=== PATIENT | male | born 2000 | race Caucasian/White ===

== ENCOUNTER 2021-06-27 00:43 | Emergency (ER) | payer MEDICAID ==
[2021-06-27] MEDS ORDERED: ALBUTEROL NEB 2.5 MG/3 ML INH STA (01:01)
--- NOTE | 2021-06-27 01:04 | ED Physician Documentation ---
History of Present Illness - Stated complaint Stated Complaint: SOA - Chief complaint Chief Complaint: Resp - History obtained from History obtained from: Patient - Additonal information Additional information: 20-year-old male with history presents requesting an inhaler to go home with. Patient states that he is not currently short of breath but that he was hoping for an inhaler from hospital to tide him over until he can fill his prescription July 10. Prior to that time he states he would have to pay [id number]. patient denies leg swelling, hemoptysis, productive cough, fever, nausea or chest pain. 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 Review of Systems Ten Systems: 10 systems reviewed and negative Constitutional: denies: Fever, Chills Respiratory: reports: Dyspnea. denies: Cough PD PAST MEDICAL HISTORY - Past Medical History Past Medical History: Yes Respiratory: Asthma Neuro: Seizure disorder - Past Surgical History Past Surgical History: No - Present Medications Home Medications: Ambulatory Orders Medication Instructions Recorded Confirmed Albuterol Sulf [Ventolin Hfa 2 puffs INH PRN PRN 06/27/21 06/27/21 Inhaler] Montelukast [Singulair] 10 mg PO DAILY 06/27/21 06/27/21 - Allergies Allergies/Adverse Reactions: Allergies Allergy/AdvReac Type Severity Reaction Status Date / Time No Known Drug Allergies Allergy Verified 06/27/21 00:50 - Social History Does the pt smoke?: No Smoking Status: Never smoker Does the pt drink ETOH?: Yes Does the pt have substance abuse?: No - Immunizations Immunizations are current?: Yes PD ED PE NORMAL - Vitals Vital signs reviewed: Yes - General General: Alert and oriented X 3, No acute distress, Well developed/nourished - HEENT HEENT: Atraumatic, PERRL, EOMI, Moist mucous membranes, Pharynx benign - Cardiac Cardiac: RRR, No murmur - Respiratory Respiratory: No respiratory distress, Other (scant expiratory wheezing bilaterally) - Derm Derm: Normal color - Neuro Neuro: Alert and oriented X 3 - Psych Psych: Normal mood, Normal affect Results - Vitals Vitals: Vital Signs - 24 hr 06/27/21 06/27/21 06/27/21 00:51 00:56 01:14 Temperature 36.6 C 36.6 C Heart Rate 64 64 64 Respiratory 21 21 20 Rate Blood Pressure 150/93 H 150/93 H O2 Saturation 97 97 Oxygen O2 Source Room air PD MEDICAL DECISION MAKING - ED course ED course: 20-year-old man presents requesting an inhaler to take home with them. Advised him that we do not have any in the hospital that we can give out and offered him a treatment here, which he accepted. Return precautions given. Patient will follow up outpatient with his primary doctor for referral to pulmonology. Departure - Departure Disposition: 01 Home, Self Care Clinical Impression: Asthma Condition: Good Instructions: Asthma Dc Comments: You were seen in the emergency department for evaluation of asthma. You can get an inhaler for $18.79 at [employer], [email or web address], or most major pharmacies at a discount if you use a coupon from [employer]. Please return to the emergency department if you have any new or worsening symptoms or other concerns. Follow-up with your primary doctor.
[2021-06-27 01:44] VITALS: BP 138/78
== END 2021-06-27 01:45 | disposition home or self-care (01) ==
LOC: ED 00:43
DX: J45.909 Unspecified asthma, uncomplicated (principal)
CPT/HCPCS: 94640; 99283

== ENCOUNTER 2021-07-24 21:17 | Outpatient (CLI) | payer MEDICAID | END 2021-07-24 21:18 | disposition critical access hospital (66) | LOC: EMS 21:17 | DX: R06.02 Shortness of breath (principal); R07.1 Chest pain on breathing; R06.2 Wheezing; R09.81 Nasal congestion; R05 Cough | CPT/HCPCS: A0425; A0427; A0999 ==

== ENCOUNTER 2021-07-24 21:37 | Emergency (ER) | payer MEDICAID ==
[2021-07-24 22:15] LABS: BASOPHILS # (AUTO) 0.1 10^3/uL (0.0-0.1); BASOPHILS % (AUTO) 0.6 %; EOSINOPHILS # (AUTO) 1.2 10^3/uL (0.0-0.7); EOSINOPHILS % (AUTO) 11.1 %; HCT - HEMATOCRIT 46.8 % (42.0-52.0); HGB - HEMOGLOBIN 16.2 g/dL (14.0-18.0); LYMPHOCYTES # (AUTO) 2.7 10^3/uL (1.5-3.5); LYMPHOCYTES % (AUTO) 25.9 %; MEAN CORPUSCULAR HEMOGLOBIN 29.7 pg (27.0-31.0); MEAN CORPUSCULAR HGB CONC 34.6 g/dL (32.0-36.0); MEAN CORPUSCULAR VOLUME 85.7 fL (80.0-94.0); MEAN PLATELET VOLUME 9.5 fL (7.4-11.4); MONOCYTES # (AUTO) 0.7 10^3/uL (0.0-1.0); MONOCYTES % (AUTO) 6.4 %; NEUTROPHILS # (AUTO) 5.8 10^3/uL (1.5-6.6); NEUTROPHILS % (AUTO) 55.7 %; PLT - PLATELET COUNT 212 10^3/uL (130-450); RED BLOOD COUNT 5.46 10^6/uL (4.70-6.10); RED CELL DISTRIBUTION WIDTH 12.4 % (12.0-15.0); WHITE BLOOD COUNT 10.5 x10^3/uL (4.8-10.8)
--- NOTE | 2021-07-24 22:20 | ED Physician Documentation ---
PD HPI URI - Stated complaint Stated Complaint: ASTHMA ATTACK - Chief complaint Chief Complaint: Resp - History obtained from History obtained from: Patient - History of Present Illness Timing - onset: How many days ago (44) Timing duration: Days Timing details: Gradual onset, Still present, Still present in ED Associated symptoms: Nasal congestion, Rhinorrhea, Dry cough, Dyspnea Contributing factors: Sick contact Improves by: Rest, Medication Worsened by: Activity Similar symptoms before: Diagnosis (asthma has run out of albuterol) Recently seen: Not recently seen Review of Systems Constitutional: denies: Fever Eyes: denies: Decreased vision Ears: denies: Ear pain Nose: reports: Congestion Throat: denies: Sore throat Cardiac: denies: Chest pain / pressure, Palpitations Respiratory: reports: Dyspnea, Cough, Wheezing GI: denies: Abdominal Pain, Nausea, Vomiting : denies: Dysuria, Frequency PD PAST MEDICAL HISTORY - Past Medical History Past Medical History: Yes Respiratory: Asthma Neuro: Seizure disorder - Past Surgical History Past Surgical History: No - Present Medications Home Medications: Ambulatory Orders Medication Instructions Recorded Confirmed Albuterol Sulf [Ventolin Hfa 2 puffs INH PRN PRN 06/27/21 07/24/21 Inhaler] Montelukast [Singulair] 10 mg PO DAILY 06/27/21 06/27/21 Albuterol Sulf [Ventolin Hfa 1 - 2 puffs INH Q4HR PRN #1 inhaler 07/24/21 Inhaler] Azithromycin [Zithromax] 250 mg PO DAILY #6 tablet 07/24/21 predniSONE [Deltasone] 10 mg PO ONCE #26 tablet 07/24/21 - Allergies Allergies/Adverse Reactions: Allergies Allergy/AdvReac Type Severity Reaction Status Date / Time No Known Drug Allergies Allergy Verified 06/27/21 00:50 - Social History Does the pt smoke?: No Smoking Status: Never smoker Does the pt drink ETOH?: Yes Does the pt have substance abuse?: No - Immunizations Immunizations are current?: Yes PD ED PE NORMAL - Vitals Vital signs reviewed: Yes (hpyertensive ) - General General: Alert and oriented X 3, No acute distress, Well developed/nourished - HEENT HEENT: Atraumatic, PERRL, EOMI, Pharynx benign, Other (left TM is inflamed with distortion of the landmarks. 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, No motor deficit, No sensory deficit, Normal speech Eye Opening: Spontaneous Motor: Obeys Commands Verbal: Oriented GCS Score: 15 - Psych Psych: Normal mood, Normal affect Results - Vitals Vitals: Vital Signs - 24 hr 07/24/21 07/24/21 07/24/21 21:45 22:23 23:25 Temperature 36.9 C 36.9 C 36.8 C Heart Rate 90 90 89 Respiratory 20 20 20 Rate Blood Pressure 142/90 H 142/90 H 135/71 H O2 Saturation 97 97 97 07/24/21 07/24/21 23:26 23:28 Temperature 36.8 C Heart Rate 89 68 Respiratory 20 16 Rate Blood Pressure 135/71 H O2 Saturation 97 Oxygen O2 Source Room air - Labs Labs: Laboratory Tests 07/24/21 07/24/21 07/24/21 22:08 22:08 22:08 WBC 10.5 RBC 5.46 Hgb 16.2 Hct 46.8 MCV 85.7 MCH 29.7 MCHC 34.6 RDW 12.4 Plt Count 212 MPV 9.5 Neut # (Auto) 5.8 Lymph # (Auto) 2.7 Whiteside # (Auto) 0.7 Eos # (Auto) 1.2 H Baso # (Auto) 0.1 Absolute Nucleated RBC 0.00 Nucleated RBC % 0.0 Sodium 142 Potassium 3.6 Chloride 109 Carbon Dioxide 23 Anion Gap 10.0 BUN 9 Creatinine 0.9 Estimated GFR (MDRD) 106 Glucose 103 H Calcium 9.7 Total Bilirubin 0.5 AST 24 ALT 38 Alkaline Phosphatase 70 Total Protein 7.4 Albumin 4.5 Globulin 2.9 Albumin/Globulin Ratio 1.6 Lipase 30 Nasal Adenovirus (PCR) NOT DETECTED Nasal B. parapertussis DNA (PCR) NOT DETECTED Nasal Coronavir 229E PCR NOT DETECTED Nasal Coronavir HKU1 PCR NOT DETECTED Nasal Coronavir NL63 PCR NOT DETECTED Nasal Coronavir OC43 PCR NOT DETECTED Nasal Enterovir/Rhinovir PCR NOT DETECTED Nasal Influenza B PCR NOT DETECTED Nasal Influenza A PCR NOT DETECTED Nasal Parainfluen 1 PCR NOT DETECTED Nasal Parainfluen 2 PCR NOT DETECTED Nasal Parainfluen 3 PCR NOT DETECTED Nasal Parainfluen 4 PCR NOT DETECTED Nasal RSV (PCR) NOT DETECTED Nasal B.pertussis DNA PCR NOT DETECTED Nasal C.pneumoniae (PCR) NOT DETECTED Soto Human Metapneumo PCR NOT DETECTED Nasal M.pneumoniae (PCR) NOT DETECTED Nasal SARS-CoV-2 (PCR) NOT DETECTED - Rads (name of study) chest Radiology: Prelim report reviewed (Impression: 1. Normal heart and lungs.), EMP read indepedently, See rad report PD MEDICAL DECISION MAKING - ED course Complexity details: reviewed old records, reviewed results, re-evaluated patient, considered differential, d/w patient ED course: 20-year-old male with a history of asthma has had an exacerbation of his asthma he does not have an inhaler at home. He has been sick for about 4 days with increased congestion. He has otitis on the left and his chest x-ray is normal- appearing. He has tight wheezes and he is administered a DuoNeb treatment after his PCR is negative. Is treated for otitis media and given steroid. We will provide an inhaler. Departure - Departure Disposition: 01 Home, Self Care Clinical Impression: Asthma exacerbation Qualifiers: Asthma severity: mild Asthma persistence: intermittent Qualified Code(s): J45.21 - Mild intermittent asthma with (acute) exacerbation Otitis media Qualifiers: Otitis media type: suppurative Chronicity: acute Laterality: left Recurrence: not specified as recurrent Spontaneous tympanic membrane rupture: without spontaneous rupture Qualified Code(s): H66.002 - Acute suppurative otitis media without spontaneous rupture of ear drum, left ear Condition: Stable Instructions: ED Reactive Airway Disease, ED Otitis Media Acute Adult Follow-Up: [facility] [Provider Group] Prescriptions: Albuterol Sulf [Ventolin Hfa Inhaler] 1 - 2 puffs INH Q4HR PRN #1 inhaler PRN Reason: Shortness Of Air/Wheezing predniSONE [Deltasone] 10 mg PO ONCE #26 tablet Azithromycin [Zithromax] 250 mg PO DAILY #6 tablet Discharge Date/Time: 07/24/21 23:40
[2021-07-24] MEDS ORDERED: DEXAMETHASONE 10 MG/ML VIAL IVP STA (22:24)
[2021-07-24] MEDS ORDERED: cefTRIAXone 1 GM in SODIUM CHLORIDE 0.9% MINIBAG 100 ML IV STA (22:25)
[2021-07-24] MEDS ORDERED: cefTRIAXone 1 GM VIAL ONE (22:33)
[2021-07-24 22:36] LABS: ALBUMIN 4.5 g/dL (3.2-5.5); ALBUMIN/GLOBULIN RATIO 1.6 (1.0-2.2); BILIRUBIN,TOTAL 0.5 mg/dL (0.2-1.0); CALCIUM 9.7 mg/dL (8.5-10.3); CREATININE 0.9 mg/dL (0.6-1.2); POTASSIUM 3.6 mmol/L (3.5-5.0); TOTAL PROTEIN 7.4 g/dL (6.7-8.2)
[2021-07-24 23:05] LABS: B. PARAPERTUSSIS- RESP PCR PAN NOT DETECTED; B. PERTUSSIS- RESP PCR PANEL NOT DETECTED; C. PNEUMONIAE- RESP PCR PANEL NOT DETECTED; CORONAVIRUS 229E-RESP PCR NOT DETECTED; CORONAVIRUS HKU1-RESP PCR NOT DETECTED; CORONAVIRUS NL63-RESP PCR NOT DETECTED; CORONAVIRUS OC43-RESP PCR NOT DETECTED; HUMAN METAPNEUMOVIRUS NOT DETECTED; INFLUENZA A- RESP PCR PANEL NOT DETECTED; INFLUENZA B - RESP PCR PANEL NOT DETECTED; M. PNEUMONIAE- RESP PCR PANEL NOT DETECTED; PARAINFLUENZA VIRUS 1 NOT DETECTED; PARAINFLUENZA VIRUS 2 NOT DETECTED; PARAINFLUENZA VIRUS 3 NOT DETECTED; PARAINFLUENZA VIRUS 4 NOT DETECTED; RHINOVIRUS/ENTEROVIRUS NOT DETECTED; RSV- RESP PCR PANEL NOT DETECTED; SARS-CoV-2 -RESP PCR PANEL NOT DETECTED
[2021-07-24] MEDS ORDERED: IPRATROPIUM/ALBUTEROL 3 ML NEB INH STA (23:12)
[2021-07-24 23:26] VITALS: BP 135/71
--- NOTE | 2021-07-25 08:38 | XRAY Report ---
PROCEDURE: Chest 1 View X-Ray INDICATIONS: Chest pain TECHNIQUE: One view of the chest was acquired. COMPARISON: None. FINDINGS: Surgical changes and devices: None. Lungs and pleura: No pleural effusions or pneumothorax. Lungs are clear. Mediastinum: Mediastinal contours appear normal. Heart size is normal. Bones and chest wall: No suspicious bony lesions. Overlying soft tissues appear unremarkable. IMPRESSION: No acute cardiopulmonary process demonstrated radiographically. Reviewed by: Jorge Manley MD on 07/25/2021 8:37 AM PDT Approved by: Jorge Manley MD on 07/25/2021 8:37 AM PDT Station ID: [id number]
== END 2021-07-24 23:40 | disposition home or self-care (01) ==
LOC: EDUNIT# → ED 21:37
DX: J45.21 Mild intermittent asthma with (acute) exacerbation (principal); H66.002 Acute suppurative otitis media without spontaneous rupture of ear drum, left ear; Z20.822 Contact with and (suspected) exposure to COVID-19
CPT/HCPCS: 0202U; 36415; 71045; 80053; 83690; 85025; 94640; 96365; 96375; 99284

== ENCOUNTER 2021-07-27 21:49 | Emergency (ER) | payer MEDICAID ==
[2021-07-27] MEDS ORDERED: ALBUTEROL NEB 2.5 MG/3 ML INH STA ×2 (22:30→23:04)
--- NOTE | 2021-07-27 22:54 | ED Physician Documentation ---
History of Present Illness - Stated complaint Stated Complaint: SOA - Chief complaint Chief Complaint: Resp - History obtained from History obtained from: Patient - Additonal information Additional information: 20-year-old man with history of seizure disorder, asthma, former smoker, presents with cough and shortness of breath progressively worsening over the past week since moving into a new home. Patient was seen here recently in the emergency department and prescribed steroids and comes in tonight because he ran out of his nebulizer treatments. He has used his pump more than 10 times today and did a nebulizer treatment in the morning and then another one about 2 hours prior to arrival. Patient states that he had significant relief from nebulizer but came here because he still is having some chest tightness. Denies hemoptysis, leg swelling, fever or shortness of breath at present. 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), Cough GI: denies: Nausea, Vomiting PD PAST MEDICAL HISTORY - Past Medical History Respiratory: Asthma Neuro: Seizure disorder - Past Surgical History Past Surgical History: No - Present Medications Home Medications: Ambulatory Orders Medication Instructions Recorded Confirmed Albuterol Sulf [Ventolin Hfa 2 puffs INH PRN PRN 06/27/21 07/24/21 Inhaler] Montelukast [Singulair] 10 mg PO DAILY 06/27/21 06/27/21 Albuterol Sulf [Ventolin Hfa 1 - 2 puffs INH Q4HR PRN #1 inhaler 07/24/21 Inhaler] Azithromycin [Zithromax] 250 mg PO DAILY #6 tablet 07/24/21 predniSONE [Deltasone] 10 mg PO ONCE #26 tablet 07/24/21 Albuterol 2.5 mg INH Q4H PRN #30 ml 07/27/21 - Allergies Allergies/Adverse Reactions: Allergies Allergy/AdvReac Type Severity Reaction Status Date / Time No Known Drug Allergies Allergy Verified 07/27/21 21:57 - Social History Does the pt smoke?: No Smoking Status: Never smoker Does the pt drink ETOH?: Yes Does the pt have substance abuse?: No - Immunizations Immunizations are current?: Yes - POLST Patient has POLST: No PD ED PE NORMAL - Vitals Vital signs reviewed: Yes - General General: Alert and oriented X 3, No acute distress, Well developed/nourished - HEENT HEENT: Atraumatic, PERRL, EOMI, Moist mucous membranes, Pharynx benign - Neck Neck: Supple, no meningeal sign - Cardiac Cardiac: RRR - Respiratory Respiratory: No respiratory distress, Other (diffuse end expiratory wheezing. no increased WOB) - Abdomen Abdomen: Non tender, Non distended - Derm Derm: Normal color, Warm and dry - Extremities Extremities: No deformity, No edema - Neuro Neuro: Alert and oriented X 3 - Psych Psych: Normal mood, Normal affect Results - Vitals Vitals: Vital Signs - 24 hr 07/27/21 07/27/21 07/27/21 21:50 21:53 22:50 Temperature 36.4 C L Heart Rate 100 93 88 Respiratory 16 16 18 Rate Blood Pressure 151/89 H 150/85 H O2 Saturation 96 93 Oxygen O2 Source Room air PD MEDICAL DECISION MAKING - ED course ED course: 20-year-old man presents with asthma exacerbation, currently getting steroid treatments but requesting a refill on his nebulizer. Patient symptoms are well controlled upon arrival to the emergency department but he did request 1 additional nebulizer treatment here until he can fill his prescription tomorrow morning. Patient with improved air entry status post nebulizer and diminished in wheezing. Educated to continue his steroid treatment and follow-up with his primary doctor for referral to pulmonology. Return precautions given. Departure - Departure Disposition: 01 Home, Self Care Clinical Impression: Asthma exacerbation Condition: Good Instructions: Asthma Dc Prescriptions: Albuterol 2.5 mg INH Q4H PRN #30 ml PRN Reason: Wheezing Comments: You are seen in the emergency department for asthma exacerbation. Please follow-up with your primary doctor this week and return to the emergency department if you have any new or worsening symptoms or other concerns. Fill your prescription and complete the course of your steroids that you were pre scribed earlier.
[2021-07-27 23:05] VITALS: BP 160/85
== END 2021-07-27 23:08 | disposition left against medical advice (07) ==
LOC: ED 21:49
DX: J45.901 Unspecified asthma with (acute) exacerbation (principal)
CPT/HCPCS: 94640; 94664; 99283; 99284

== ENCOUNTER 2022-11-02 20:12 | Emergency (ER) | payer MEDICAID ==
[2022-11-02 20:35] VITALS: BP 134/85
[2022-11-02 21:31] LABS: B. PARAPERTUSSIS- RESP PCR PAN NOT DETECTED; B. PERTUSSIS- RESP PCR PANEL NOT DETECTED; C. PNEUMONIAE- RESP PCR PANEL NOT DETECTED; CORONAVIRUS 229E-RESP PCR NOT DETECTED; CORONAVIRUS HKU1-RESP PCR NOT DETECTED; CORONAVIRUS NL63-RESP PCR NOT DETECTED; CORONAVIRUS OC43-RESP PCR NOT DETECTED; HUMAN METAPNEUMOVIRUS NOT DETECTED; INFLUENZA A- RESP PCR PANEL NOT DETECTED; INFLUENZA B - RESP PCR PANEL NOT DETECTED; M. PNEUMONIAE- RESP PCR PANEL NOT DETECTED; PARAINFLUENZA VIRUS 1 NOT DETECTED; PARAINFLUENZA VIRUS 2 NOT DETECTED; PARAINFLUENZA VIRUS 3 DETECTED; PARAINFLUENZA VIRUS 4 NOT DETECTED; RHINOVIRUS/ENTEROVIRUS NOT DETECTED; RSV- RESP PCR PANEL NOT DETECTED; SARS-CoV-2 -RESP PCR PANEL NOT DETECTED
[2022-11-02] MEDS ORDERED: predniSONE 20 MG TABLET PO STA (21:34)
--- NOTE | 2022-11-02 21:34 | XRAY Report ---
PROCEDURE: Chest 1 View X-Ray INDICATIONS: cough/SOA TECHNIQUE: One view of the chest was acquired. COMPARISON: The similar chest plain film imaging 07/24/2021.. FINDINGS: Surgical changes and devices: None. Lungs and pleura: No pleural effusions or pneumothorax. 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 Mediastinum: Mediastinal contours appear normal. Heart size is normal. Bones and chest wall: No suspicious bony lesions. Overlying soft tissues appear unremarkable. IMPRESSION: Chronic-appearing mild interstitial prominence, no change from 07/24/2021. Reviewed by: Arsenio Pride MD on 11/02/2022 9:32 PM PST Approved by: Arsenio Pride MD on 11/02/2022 9:32 PM PST Station ID: [id number]
--- NOTE | 2022-11-02 21:37 | ED Physician Documentation ---
PD HPI URI - Stated complaint Stated Complaint: CHEST DISCOMFORT/SOA - Chief complaint Chief Complaint: Resp - History obtained from History obtained from: Patient - Additional information Additional information: Patient is a 21-year-old male with a history of asthma presenting for evaluation of feeling short of breath and having a productive cough for 3 weeks. He initially reported having RSV and influenza and was doing better up until a few days ago when his symptoms started to flareup again. He says that the other family members are continued to be doing well. He has been using his inhaler. He does feel like he is running out of the inhaler.It does help when he uses it.His cough has been nonproductive. He denies known fevers. He denies abdominal pain, vomiting. He is tolerating p.o. Review of Systems Constitutional: reports: Fever Nose: reports: Congestion Cardiac: denies: Chest pain / pressure Respiratory: reports: Dyspnea, Cough GI: denies: Abdominal Pain : denies: Dysuria Musculoskeletal: denies: Back pain Neurologic: denies: Headache PD PAST MEDICAL HISTORY - Past Medical History Past Medical History: No Respiratory: Asthma Neuro: Seizure disorder - Past Surgical History Past Surgical History: No - Present Medications Home Medications: Ambulatory Orders Medication Instructions Recorded Confirmed Albuterol Sulf [Ventolin Hfa 2 puffs INH PRN PRN 06/27/21 07/24/21 Inhaler] Montelukast [Singulair] 10 mg PO DAILY 06/27/21 06/27/21 Albuterol Sulf [Ventolin Hfa 1 - 2 puffs INH Q4HR PRN #1 inhaler 07/24/21 Inhaler] Azithromycin [Zithromax] 250 mg PO DAILY #6 tablet 07/24/21 predniSONE [Deltasone] 10 mg PO ONCE #26 tablet 07/24/21 Albuterol 2.5 mg INH Q4H PRN #30 ml 07/27/21 Albuterol Sulf [Ventolin Hfa 1 - 2 puffs INH Q4HR PRN #1 each 11/02/22 Inhaler] predniSONE [Deltasone] 60 mg PO DAILY 4 Days #12 tablet 11/02/22 - Allergies Allergies/Adverse Reactions: Allergies Allergy/AdvReac Type Severity Reaction Status Date / Time No Known Drug Allergies Allergy Verified 11/02/22 20:35 - Social History Does the pt smoke?: No Smoking Status: Never smoker Does the pt drink ETOH?: Yes ETOH Use: Beer Does the pt have substance abuse?: No - Immunizations Immunizations are current?: Yes - POLST Patient has POLST: No PD ED PE NORMAL - General General: Alert and oriented X 3, No acute distress, Well developed/nourished - HEENT HEENT: Atraumatic, Moist mucous membranes, Pharynx benign - Neck Neck: Supple, no meningeal sign - Cardiac Cardiac: RRR, No murmur - Respiratory Respiratory: No respiratory distress, Other (Mild end expiratory wheeze) - Abdomen Abdomen: Soft, Non tender - Derm Derm: Warm and dry - Neuro Neuro: Normal speech Results - Vitals Vitals: Vital Signs - 24 hr 11/02/22 20:30 Temperature 36.8 C Heart Rate 85 Respiratory 18 Rate Blood Pressure 134/85 H O2 Saturation 98 Oxygen O2 Source Room air - Labs Labs: Laboratory Tests 11/02/22 20:30 Nasal Adenovirus (PCR) NOT DETECTED Nasal B. parapertussis DNA (PCR) NOT DETECTED Nasal Coronavir 229E PCR NOT DETECTED Nasal Coronavir HKU1 PCR NOT DETECTED Nasal Coronavir NL63 PCR NOT DETECTED Nasal Coronavir OC43 PCR NOT DETECTED Nasal Enterovir/Rhinovir PCR NOT DETECTED Nasal Influenza B PCR NOT DETECTED Nasal Influenza A PCR NOT DETECTED Nasal Parainfluen 1 PCR NOT DETECTED Nasal Parainfluen 2 PCR NOT DETECTED Nasal Parainfluen 3 PCR DETECTED A Nasal Parainfluen 4 PCR NOT DETECTED Nasal RSV (PCR) NOT DETECTED Nasal B.pertussis DNA PCR NOT DETECTED Nasal C.pneumoniae (PCR) NOT DETECTED Soto Human Metapneumo PCR NOT DETECTED Nasal M.pneumoniae (PCR) NOT DETECTED Nasal SARS-CoV-2 (PCR) NOT DETECTED PD MEDICAL DECISION MAKING - ED course ED course: Patient with URI symptoms for the past several days. Has also recently been ill with flu and RSV in the past month. Vital signs are stable.Mild wheeze on exam but overall reassuring lung exam. His chest x-ray is clear. His respiratory panel is positive for parainfluenza.Viral illness is likely triggering his asthm a. Will place on a short course of prednisone and refill his inhaler. Patient is counseled on concerning symptoms to return for. Departure - Departure Disposition: 01 Home, Self Care Clinical Impression: Mild asthma exacerbation, Parainfluenza Condition: Stable Instructions: ED Bronchitis Asthmatic, ED Viral Syndrome Prescriptions: Albuterol Sulf [Ventolin Hfa Inhaler] 1 - 2 puffs INH Q4HR PRN #1 each PRN Reason: Shortness Of Air/Wheezing predniSONE [Deltasone] 60 mg PO DAILY 4 Days #12 tablet Comments: You have tested positive for parainfluenza which is a respiratory virus Causing common cold symptoms.Your chest x-ray does not show signs of pneumonia.The virus appears to be exacerbating your asthma. I sent a prescription for steroids and albuterol to [facility] in [place]. If you have any worsening symptoms please consider return to the ER. Otherwise please continue with the steroids as directed, the use of your inhaler as needed and plenty of fluids and rest. Discharge Date/Time: 11/02/22 21:41
== END 2022-11-02 21:41 | disposition home or self-care (01) ==
LOC: ED 20:12
DX: B34.8 Other viral infections of unspecified site (principal); J45.901 Unspecified asthma with (acute) exacerbation; Z20.822 Contact with and (suspected) exposure to COVID-19
CPT/HCPCS: 71045; 87633; 99284; J7512

== ENCOUNTER 2023-10-12 15:13 | Outpatient (CLI) | payer MEDICAID | END 2023-10-12 15:14 | disposition critical access hospital (66) | LOC: EMS 15:13 | DX: R56.9 Unspecified convulsions (principal) | CPT/HCPCS: A0425; A0429; A0999 ==

== ENCOUNTER 2023-10-12 15:32 | Emergency (ER) | payer MEDICAID ==
[2023-10-12 16:06] LABS: BASOPHILS % (AUTO) 0.3 %; EOSINOPHILS # (AUTO) 0.3 10^3/uL (0.0-0.7); EOSINOPHILS % (AUTO) 3.2 %; HCT - HEMATOCRIT 46.8 % (42.0-52.0); HGB - HEMOGLOBIN 15.9 g/dL (14.0-18.0); LYMPHOCYTES # (AUTO) 2.5 10^3/uL (1.5-3.5); LYMPHOCYTES % (AUTO) 27.8 %; MEAN CORPUSCULAR HEMOGLOBIN 29.4 pg (27.0-31.0); MEAN CORPUSCULAR VOLUME 86.5 fL (80.0-94.0); MEAN PLATELET VOLUME 9.5 fL (7.4-11.4); MONOCYTES # (AUTO) 0.6 10^3/uL (0.0-1.0); MONOCYTES % (AUTO) 6.7 %; NEUTROPHILS # (AUTO) 5.6 10^3/uL (1.5-6.6); NEUTROPHILS % (AUTO) 61.7 %; PLT - PLATELET COUNT 219 10^3/uL (130-450); RED BLOOD COUNT 5.41 10^6/uL (4.70-6.10); RED CELL DISTRIBUTION WIDTH 12.4 % (12.0-15.0); WHITE BLOOD COUNT 9.1 x10^3/uL (4.8-10.8)
--- NOTE | 2023-10-12 16:18 | ED Physician Documentation ---
PD HPI SEIZURE - Stated complaint Stated Complaint: SEIZURE/ HEAD NECK PX - Chief complaint Chief Complaint: Neuro - History obtained from History obtained from: Patient, Family - Additional information Additional information: 22-year-old male with history of seizure disorder presents by EMS from home for seizure. Patient states that he has had an EEG showing that he does have seizures, but no medications have controlled his seizures and he is not on any antiepileptic medications. He is pending a referral to [facility] neurology.Patient was in the shower when he had his seizure and did hit his head. He reported neck and left shoulder pain to EMS staff, who placed him in c-collar. Review of Systems Constitutional: denies: Fever, Chills Cardiac: denies: Chest pain / pressure, Palpitations, Calf pain Respiratory: denies: Dyspnea, Cough, Wheezing GI: denies: Abdominal Pain, Nausea, Vomiting Skin: denies: Rash, Lesions Musculoskeletal: reports: Neck pain, Joint pain. denies: Back pain, Extremity pain Neurologic: reports: Seizure, Headache. denies: Generalized weakness, Focal weakness, Numbness PD PAST MEDICAL HISTORY - Past Medical History Respiratory: Asthma Neuro: Seizure disorder - Past Surgical History Past Surgical History: No - Present Medications Home Medications: Ambulatory Orders Medication Instructions Recorded Confirmed Albuterol Sulf [Ventolin Hfa 2 puffs INH PRN PRN 06/27/21 07/24/21 Inhaler] Montelukast [Singulair] 10 mg PO DAILY 06/27/21 06/27/21 Albuterol Sulf [Ventolin Hfa 1 - 2 puffs INH Q4HR PRN #1 inhaler 07/24/21 Inhaler] Azithromycin [Zithromax] 250 mg PO DAILY #6 tablet 07/24/21 predniSONE [Deltasone] 10 mg PO ONCE #26 tablet 07/24/21 Albuterol 2.5 mg INH Q4H PRN #30 ml 07/27/21 Albuterol Sulf [Ventolin Hfa 1 - 2 puffs INH Q4HR PRN #1 each 11/02/22 Inhaler] predniSONE [Deltasone] 60 mg PO DAILY 4 Days #12 tablet 11/02/22 - Allergies Allergies/Adverse Reactions: Allergies Allergy/AdvReac Type Severity Reaction Status Date / Time No Known Drug Allergies Allergy Verified 11/02/22 20:35 - Social History Does the pt smoke?: No Smoking Status: Never smoker Does the pt drink ETOH?: Yes Does the pt have substance abuse?: No - Immunizations Immunizations are current?: Yes - POLST Patient has POLST: No PD ED PE NORMAL - Vitals Vital signs reviewed: Yes - General General: Alert and oriented X 3, No acute distress, Well developed/nourished - HEENT HEENT: Atraumatic - Neck Neck: Other (IN C-COLLAR) - Cardiac Cardiac: RRR - Respiratory Respiratory: No respiratory distress - Abdomen Abdomen: Soft, Non tender - Derm Derm: Normal color, Warm and dry, No rash - Extremities Extremities: No deformity, No tenderness to palpate, Normal ROM s pain, No edema - Neuro Neuro: Alert and oriented X 3, mainframe developer 2-12 intact, No motor deficit, Normal speech - Psych Psych: Normal mood, Normal affect Results - Vitals Vitals: Vital Signs - 24 hr 10/12/23 10/12/23 15:37 17:58 Temperature 36.3 C L Heart Rate 71 65 Respiratory 18 17 Rate Blood Pressure 140/97 H 119/76 O2 Saturation 99 95 Oxygen O2 Source Room air - Labs Labs: Laboratory Tests 10/12/23 10/12/23 16:00 16:00 WBC 9.1 RBC 5.41 Hgb 15.9 Hct 46.8 MCV 86.5 MCH 29.4 MCHC 34.0 RDW 12.4 Plt Count 219 MPV 9.5 Neut # (Auto) 5.6 Lymph # (Auto) 2.5 [place] # (Auto) 0.6 Eos # (Auto) 0.3 Baso # (Auto) 0.0 Absolute Nucleated RBC 0.00 Nucleated RBC % 0.0 Sodium 138 Potassium 3.8 Chloride 106 Carbon Dioxide 26 Anion Gap 6.0 BUN 17 Creatinine 1.0 Estimated GFR (MDRD) 92 Glucose 92 Calcium 9.6 Total Bilirubin 0.4 AST 26 ALT 57 Alkaline Phosphatase 71 Total Protein 6.6 Albumin 4.6 Globulin 2.0 L Albumin/Globulin Ratio 2.3 H PD Medical Decision Making - ED course Complexity details: reviewed results, re-evaluated patient, considered differential, d/w patient ED course: head injury during seizure. Back to baseline. CT imaging negative. Labs unremarkable. Patient declined seizure medications here, stating he would call neurology office tomorrow concerning his referral. Neurologically at baseline at discharge. Patient aware of seizure precautions - does not drive and knows to be careful around water or dangerous activities. Departure - Departure Disposition: 01 Home, Self Care Clinical Impression: Seizure Condition: Stable Instructions: ED Seizure Recurrent Forms: PCP List Discharge Date/Time: 10/12/23 17:58
[2023-10-12 16:23] LABS: ALBUMIN 4.6 g/dL (3.2-5.5); ALBUMIN/GLOBULIN RATIO 2.3 (1.0-2.2); BILIRUBIN,TOTAL 0.4 mg/dL (0.2-1.0); CALCIUM 9.6 mg/dL (8.5-10.3); POTASSIUM 3.8 mmol/L (3.5-4.5); TOTAL PROTEIN 6.6 g/dL (6.4-8.9)
--- NOTE | 2023-10-12 17:21 | CT Report ---
PROCEDURE: CERVICAL SPINE WO INDICATIONS: SEIZURE/GLF/NECK PAIN TECHNIQUE: Helical axial CT of the cervical spine was obtained without contrast and reformatted in m ultiple planes. Radiation dose reduction was achieved utilizing automated exposure control or adjus tment of mA and/or kV according to patient size. COMPARISON: None. FINDINGS: Bones: No fractures or dislocations. Visualized superior ribs are intact. Incidental nonsegmentati on of the C3 and C4 segments resulting in block vertebrae Soft tissues: Prevertebral soft tissues are normal in thickness. No paravertebral hematomas. No ap ical pneumothoraces. 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
--- NOTE | 2023-10-12 17:23 | CT Report ---
PROCEDURE: CT brain without contrast INDICATIONS: SEIZURE/GLF/HEAD INJURY TECHNIQUE: Helical axial CT of the brain was obtained without contrast and reformatted in multiple p lanes. Radiation dose reduction was achieved using automated exposure control or adjustment of mA and /or kV according to patient size. COMPARISON: None FINDINGS: CSF spaces: Ventricles are appropriate in size and position. No hydrocephalus. Basal cisterns unre markable. Brain: No midline shift. No intracranial masses or hemorrhage. Carvajal-white matter interface is norm al. Skull and face: Calvarium and skull base are unremarkable without suspicious lesion. Sinuses: Visualized sinuses and mastoids are clear. IMPRESSION: Unremarkable CT of the brain Reviewed by: Jordan Bender MD on 10/12/2023 4:21 PM [place] Approved by: Jordan Bender MD on 10/12/2023 4:21 PM AKST Station ID: [id number]
[2023-10-12 17:59] VITALS: BP 119/76; O2SAT 95
== END 2023-10-12 17:58 | disposition home or self-care (01) ==
LOC: EDUNIT# → ED 15:32
DX: R56.9 Unspecified convulsions (principal); S09.90XA Unspecified injury of head, initial encounter; W18.39XA Other fall on same level, initial encounter; Y93.E1 Activity, personal bathing and showering; Y92.002 Bathroom of unspecified non-institutional (private) residence as the place of occurrence of the external cause
CPT/HCPCS: 36415; 80053; 85025; 99283; 99284

== ENCOUNTER 2024-08-03 00:02 | Outpatient (CLI) | payer MEDICAID | END 2024-08-03 00:03 | disposition left against medical advice (07) | LOC: EMS 00:02 | DX: J45.909 Unspecified asthma, uncomplicated (principal) ==